=== PATIENT | male | born 1970 | race Hispanic/Latino ===

== ENCOUNTER 2019-10-29 17:11 | Inpatient (IN) | payer BC ==
[~2019-10-29] VITALS: Ht 172.7 cm; Wt 77.1 kg
[~2019-10-29 17:11] MED LIST: AMIO200T5 PO; APIX5TAB PO; FURO20TA4 PO; METO-391 PO; POTA10CA44 PO; TRAM50TA4 PO; [UNRECOGNIZED DRUG - CODE] PO
[2019-10-29] MEDS ORDERED: DILTIAZEM HCL 125 MG/25 ML VIAL IV ONE (18:05)
[2019-10-29] MEDS ORDERED: SODIUM CHLORIDE 0.9% 100 ML IV ONE (18:06)
[2019-10-29] MEDS ORDERED: DILTIAZEM HCL 5 MG/ML 10 ML VIAL IV ONE (18:06)
[2019-10-29 18:15] LABS: BASOPHILS % (AUTO) 0.2 % (0.0-5.0); EOSINOPHILS % (AUTO) 0.2 % (0.0-8.0); HEMATOCRIT 43.6 % (42-54); LYMPHOCYTES % (AUTO) 8.4 % (21.0-51.0); MEAN CORPUSCULAR HEMOGLOBIN 26.7 pg (27.0-33.0); MEAN CORPUSCULAR HGB CONC 31.9 g/dL (32.0-36.0); MEAN CORPUSCULAR VOLUME 83.8 fL (79-99); MONOCYTES % (AUTO) 10.1 % (3.0-13.0); NEUTROPHILS % (AUTO) 80.7 % (40.0-77.0); PLATELET COUNT (AUTO) 253 K/uL (130-400); RED CELL DISTRIBUTION WIDTH 12.3 % (11.0-15.5); WHITE BLOOD COUNT (AUTO) 12.9 K/uL (4.8-10.8)
[2019-10-29] MEDS ORDERED: ASPIRIN 325 MG TABLET ONE (18:23)
[2019-10-29 18:35] LABS: CREATININE 1.1 mg/dL (0.5-1.5); POTASSIUM 4.3 mmol/L (3.5-5.1)
[2019-10-29 18:37] LABS: INR 1.02 (0.85-1.15); PARTIAL THROMBOPLASTIN TIME 31.3 SEC (26.3-35.5)
[2019-10-29 18:40] LABS: BILIRUBIN,TOTAL 0.7 mg/dL (0.2-1.0); TOTAL PROTEIN, SERUM 8.3 g/dL (6.0-8.3)
[2019-10-29 19:26] LABS: B-TYPE NATRIURETIC PEPTIDE 73 pg/mL (0-100)
[2019-10-29] MEDS ORDERED: SODIUM CHLORIDE 0.9% 1000ML 1,000 ML IV ONE (20:16)
[2019-10-29] MEDS ORDERED: IOHEXOL-350 75 ML VIAL IV ONE (20:34)
[2019-10-29 21:17] LABS: APPEARANCE,URINE Clear (CLEAR); BILIRUBIN,URINE Negative (NEGATIVE); COLOR,URINE Dark Yellow (YELLOW); GLUCOSE, URINE (UA) Negative (NEGATIVE); KETONES,URINE >=160 mg/dL (NEGATIVE); LEUKOCYTE ESTERASE ,URINE Negative (NEGATIVE); NITRATE,URINE Negative (NEGATIVE); OCCULT BLOOD,URINE Trace (NEGATIVE); PH,URINE 5.5 (5.0-8.0); PROTEIN,URINE POS 1+ mg/dL (NEGATIVE)
[2019-10-29 21:26] LABS: AMPHET/METH SCREEN,URINE NEGATIVE (NEGATIVE); BARBITURATE SCREEN, URINE NEGATIVE (NEGATIVE); BENZODIAZEPINES SCREEN,URINE NEGATIVE (NEGATIVE); CANNABINOID SCREEN,URINE NEGATIVE (NEGATIVE); COCAINE SCREEN,URINE NEGATIVE (NEGATIVE); OPIATE SCREEN,URINE NEGATIVE (NEGATIVE); PHENCYCLIDINE SCREEN,URINE NEGATIVE (NEGATIVE)
[2019-10-29 21:40] LABS: BACTERIA,URINE Moderate /HPF (None Seen); MUCUS,URINE Many LPF (None Seen)
[2019-10-30] MEDS ORDERED: ONDANSETRON HCL 4 MG/2 ML VIAL IV PRN (01:00)
[2019-10-30] MEDS ORDERED: MORPHINE SULFATE 2 MG/ML 1ML SYG IVP PRN (01:00)
[2019-10-30] MEDS ORDERED: LACTULOSE 20 GM/30 ML UDCUP PO PRN (01:15)
[2019-10-30] MEDS ORDERED: CEFTRIAXONE SODIUM 1 GM IVP SCH (01:45)
[2019-10-30] MEDS: LEVOFLOXACIN 500 MG/D5W 100 ML 100 ML IV SCH (03:00)
[2019-10-30] MEDS ORDERED: NITROGLYCERIN 1GM/1 INCH PACKET TD ONE (03:12)
[2019-10-30] MEDS ORDERED: LEVOFLOXACIN 500 MG/D5W 100 ML 100 ML ONE (03:12)
[2019-10-30 05:14] LABS: BASOPHILS % (AUTO) 0.2 % (0.0-5.0); EOSINOPHILS % (AUTO) 0.6 % (0.0-8.0); HEMATOCRIT 39.9 % (42-54); LYMPHOCYTES % (AUTO) 10.6 % (21.0-51.0); MEAN CORPUSCULAR HEMOGLOBIN 27.1 pg (27.0-33.0); MEAN CORPUSCULAR HGB CONC 32.1 g/dL (32.0-36.0); MEAN CORPUSCULAR VOLUME 84.4 fL (79-99); PLATELET COUNT (AUTO) 239 K/uL (130-400); RED BLOOD CELL COUNT(AUTO) 4.73 MIL/uL (4.50-6.20); RED CELL DISTRIBUTION WIDTH 12.2 % (11.0-15.5); WHITE BLOOD COUNT (AUTO) 10.3 K/uL (4.8-10.8)
[2019-10-30 05:38] LABS: ALBUMIN 2.6 g/dL (3.5-5.0); BILIRUBIN,TOTAL 0.7 mg/dL (0.2-1.0); CREATININE 0.9 mg/dL (0.5-1.5); POTASSIUM 3.5 mmol/L (3.5-5.1); TOTAL PROTEIN, SERUM 7.5 g/dL (6.0-8.3)
[2019-10-30] MEDS ORDERED: ASPIRIN 81MG TAB.CHEW ONE (08:46)
[2019-10-30] MEDS ORDERED: HEPARIN SODIUM 5000UNIT/ML 1ML VIAL ONE (08:47)
[2019-10-30] MEDS ORDERED: FAMOTIDINE/PF 20 MG/2 ML VIAL IV ONE (08:47)
[2019-10-30] MEDS: FAMOTIDINE/PF 20 MG/2 ML VIAL IV SCH ×2 (09:00→21:23)
[2019-10-30] MEDS: ASPIRIN 81MG TAB.CHEW PO SCH (09:00)
[2019-10-30] MEDS: HEPARIN SODIUM 5000UNIT/ML 1ML VIAL SQ SCH (13:45)
[2019-10-30 17:00] VITALS: BP 128/87
[2019-10-30] MEDS: NITROGLYCERIN 1GM/1 INCH PACKET TD SCH (17:48)
[2019-10-30 19:56] VITALS: BP 107/68
[2019-10-30] MEDS: METOPROLOL TARTRATE 50 MG TAB PO SCH (21:22)
[2019-10-30 23:52] VITALS: BP 112/64
[2019-10-31] MEDS: NITROGLYCERIN 1GM/1 INCH PACKET TD SCH ×3 (01:14→17:10)
[2019-10-31] MEDS: HEPARIN SODIUM 5000UNIT/ML 1ML VIAL SQ SCH ×2 (01:15→13:41)
[2019-10-31] MEDS: LEVOFLOXACIN 500 MG/D5W 100 ML 100 ML IV SCH (01:15)
[2019-10-31 02:53] VITALS: BP 109/68
[2019-10-31 07:00] VITALS: BP 122/78
[2019-10-31] MEDS: METOPROLOL TARTRATE 50 MG TAB PO SCH ×2 (08:58→21:39)
[2019-10-31] MEDS: ASPIRIN 81MG TAB.CHEW PO SCH (08:59)
[2019-10-31] MEDS: ACETAMINOPHEN 325 MG TAB PO PRN ×2 (08:59→17:11)
[2019-10-31] MEDS: FAMOTIDINE/PF 20 MG/2 ML VIAL IV SCH ×2 (09:00→21:39)
[2019-10-31 11:00] VITALS: BP 125/62
--- NOTE | 2019-10-31 14:57 | NUR ---
DC PLAN VISITED WITH PATIENT. PATIENT LIVES WITH SPOUSE. INDEPENDENT ABLE TO PERFORM ADL'S. PATIENT HAS NO SERVICES OR DME'S. FEELS SAFE TO RETURN HOME. Addendum: 10/31/19 at 1459 by MELISSA GOMEZ RN CM Amended: Links added.
[2019-10-31 15:00] VITALS: BP 114/61
[2019-10-31 19:44] VITALS: BP 122/73
[2019-10-31 23:35] VITALS: BP 119/70
[2019-11-01] MEDS: HEPARIN SODIUM 5000UNIT/ML 1ML VIAL SQ SCH ×2 (03:12→14:07)
[2019-11-01] MEDS: LEVOFLOXACIN 500 MG/D5W 100 ML 100 ML IV SCH (03:13)
[2019-11-01 04:14] VITALS: BP 114/69
[2019-11-01 05:45] LABS: THYROID STIMULATING HORMONE < 0.01 uIU/mL (0.36-3.74)
[2019-11-01 07:00] VITALS: BP 114/72
[2019-11-01] MEDS ORDERED: METHIMAZOLE 10 MG TAB PO SCH (09:00)
[2019-11-01] MEDS: FAMOTIDINE/PF 20 MG/2 ML VIAL IV SCH ×2 (09:50→21:24)
[2019-11-01] MEDS: ASPIRIN 81MG TAB.CHEW PO SCH (09:51)
[2019-11-01] MEDS: METOPROLOL TARTRATE 50 MG TAB PO SCH ×2 (09:51→21:24)
[2019-11-01 11:00] VITALS: BP 113/77
--- NOTE | 2019-11-01 15:04 | NUR ---
RD Notification Pt admitted for syncope, chest pain, palpitaitons, tachycardia. Symptoms discovered to be d/t Hyperthyroid, as per Pt. Recommend to continue current diet order. Pt with no nutritional concerns at this time. RD to continue to monitor. Please notify RD as nutritional concerns arise. thank you. Addendum: 11/01/19 at [address] RD Amended: Links added.
[2019-11-01 16:00] VITALS: BP 105/69
[2019-11-01 20:00] VITALS: BP 122/77
[2019-11-02] VITALS: BP 110/72
[2019-11-02] MEDS: HEPARIN SODIUM 5000UNIT/ML 1ML VIAL SQ SCH (01:39)
[2019-11-02] MEDS: LEVOFLOXACIN 500 MG/D5W 100 ML 100 ML IV SCH (03:11)
[2019-11-02 04:17] VITALS: BP 110/62
[2019-11-02 05:41] LABS: BASOPHILS % (AUTO) 0.3 % (0.0-5.0); HEMATOCRIT 40.2 % (42-54); LYMPHOCYTES % (AUTO) 13.7 % (21.0-51.0); MEAN CORPUSCULAR HEMOGLOBIN 27.2 pg (27.0-33.0); MEAN CORPUSCULAR HGB CONC 32.8 g/dL (32.0-36.0); MEAN CORPUSCULAR VOLUME 82.9 fL (79-99); MONOCYTES % (AUTO) 9.2 % (3.0-13.0); NEUTROPHILS % (AUTO) 75.5 % (40.0-77.0); PLATELET COUNT (AUTO) 315 K/uL (130-400); RED BLOOD CELL COUNT(AUTO) 4.85 MIL/uL (4.50-6.20); RED CELL DISTRIBUTION WIDTH 12.3 % (11.0-15.5); WHITE BLOOD COUNT (AUTO) 7.8 K/uL (4.8-10.8)
[2019-11-02 06:20] LABS: CARBON DIOXIDE 25 mmol/L (21-32); CHLORIDE 101 mmol/L (101-111); GLOMERULAR FILTR. RATE CALC 85 mL/min (>60); GLUCOSE,RANDOM 108 mg/dL (70-105); PHOSPHORUS 3.7 mg/dL (2.5-4.9); POTASSIUM 3.3 mmol/L (3.5-5.1); SODIUM SERUM 137 mmol/L (136-145); UREA NITROGEN, BLOOD 13 mg/dL (7-18)
[2019-11-02 07:54] VITALS: BP 120/77
[2019-11-02] MEDS: METOPROLOL TARTRATE 50 MG TAB PO SCH ×2 (08:35→20:35)
[2019-11-02] MEDS: ASPIRIN 81MG TAB.CHEW PO SCH (08:35)
[2019-11-02] MEDS ORDERED: HEPARIN SODIUM 5000UNIT/ML 1ML VIAL SQ SCH (09:00)
[2019-11-02] MEDS ORDERED: FAMOTIDINE 20MG TAB 20 MG TAB PO SCH (09:00)
[2019-11-02] MEDS ORDERED: LEVOFLOXACIN 500 MG/D5W 100 ML 100 ML IV SCH (09:00)
[2019-11-02] MEDS ORDERED: METHIMAZOLE 10 MG TAB PO SCH ×2 (09:00→19:45)
[2019-11-02 11:55] VITALS: BP 106/65
[2019-11-02 15:49] VITALS: BP 113/72
[2019-11-02] MEDS ORDERED: METO50 PO (19:47)
[2019-11-02] MEDS ORDERED: METHI10 PO (19:47)
[2019-11-02 20:39] VITALS: BP 115/74
--- NOTE | 2019-11-02 20:47 | NUR ---
PATIENT RECEIVED AND VERBALIZED DISCHARGE INSTRUCTIONS. TAKEN TO PRIVATE CAR FOR TRANSPORT HOME WITH DISCHARGE INSTRUCTIONS.
== END 2019-11-02 20:45 | disposition home or self-care (01) | DRG 644 ==
LOC: EDH 17:11 → EDHIP 10-30 01:00 → 2AH 10-30 17:01
PROVIDERS: ADMIT Internal Medicine; ATTEND Internal Medicine
DX: E05.00 Thyrotoxicosis with diffuse goiter without thyrotoxic crisis or storm (principal); J98.11 Atelectasis; D72.829 Elevated white blood cell count, unspecified; R79.89 Other specified abnormal findings of blood chemistry; E78.5 Hyperlipidemia, unspecified; F41.9 Anxiety disorder, unspecified; I48.91 Unspecified atrial fibrillation; Z88.0 Allergy status to penicillin; Z79.899 Other long term (current) drug therapy; Z83.3 Family history of diabetes mellitus; Z82.49 Family history of ischemic heart disease and other diseases of the circulatory system
CPT/HCPCS: 36415; 70450; 71045; 71275; 76536; 80048; 80053; 80061; 80305; 81001; 82550; 82948; 83735; 83880; 84100; 84145; 84439; 84443; 84445; 84480; 84484; 85025; 85378; 85610; 85730; 87880; 93005; 93306; 93356; 93880; G0378; J1644; J1956; J3490; J7030; Q9967